=== PATIENT | female | born 1955 | race Caucasian/White ===

== ENCOUNTER 2018-08-12 12:55 | Emergency (ER) | payer OTHER, BC ==
[~2018-08-12] VITALS: Ht 157.5 cm; Wt 90.7 kg
[~2018-08-12 12:55] MED LIST: AMITIZA 24 MCG24 MC1 PO; DIAZEPAM 10 MG10 M1 PO; ESTRACE1 TUBE VAG; HYDROCHLOROTHIA25 M2 PO; HYDROCODON-ACE1 EAC5 PO; LAMICTAL XR100 MG PO; LASTACAFT3 ML OP; NORCO 5-325 TA1 EACH PO; PAXIL20 MG PO; PRILOSEC 20 MG20 MG PO; TRAMADOL 50 MG50 MG PO; VALIUM5 MG PO; VENTOLIN HFA 1818 GM INH; VENTOLIN17 GM; ZESTRIL10 MG PO
[2018-08-12 14:13] VITALS: BP 155/72
== END 2018-08-12 14:10 | disposition home or self-care (01) ==
LOC: ER 12:55
DX: S46.092A Other injury of muscle(s) and tendon(s) of the rotator cuff of left shoulder, initial encounter (principal); F31.9 Bipolar disorder, unspecified; F41.9 Anxiety disorder, unspecified; I10 Essential (primary) hypertension; E78.00 Pure hypercholesterolemia, unspecified; Z90.49 Acquired absence of other specified parts of digestive tract; Z90.710 Acquired absence of both cervix and uterus; Z88.5 Allergy status to narcotic agent; X58.XXXA Exposure to other specified factors, initial encounter; Y93.89 Activity, other specified; Y92.89 Other specified places as the place of occurrence of the external cause; Y99.8 Other external cause status

== ENCOUNTER 2020-01-19 20:39 | Emergency (ER) | payer OTHER, BC ==
[~2020-01-19] VITALS: Ht 157.5 cm; Wt 77.6 kg
[2020-01-19 21:53] VITALS: BP 125/60
== END 2020-01-19 21:54 | disposition home or self-care (01) ==
LOC: ER 20:39
DX: M25.572 Pain in left ankle and joints of left foot (principal); G89.29 Other chronic pain; I10 Essential (primary) hypertension; E78.00 Pure hypercholesterolemia, unspecified; Z88.5 Allergy status to narcotic agent; Z88.2 Allergy status to sulfonamides; Z79.899 Other long term (current) drug therapy; Z90.49 Acquired absence of other specified parts of digestive tract